=== PATIENT | male | born 1955 | race African-American/Black ===

== ENCOUNTER 2019-11-12 11:00 | Outpatient (CLI) | payer OTHER, SELFPAY ==
--- NOTE | ~2019-11-12 | US_ITS ---
EXAMINATION: US retroperitoneal comp EXAM DATE: 11/12/2019 11:49 INDICATION: Left renal mass. TECHNIQUE: Multiple grayscale and Doppler images of the kidneys were obtained (by a technologist who performed the scan) and subsequently reviewed. There is no prior study for comparison. FINDINGS: Right kidney: There is normal contour and echogenicity. It measures 11.7 x 4.4 x 4.7 centimeters. T here are no focal renal lesions identified. There is no hydronephrosis. Left kidney: There is normal contour and echogenicity. It measures 11.4 x 6.5 x 5.4 centimeters. Th ere are no focal renal lesions identified. There is no hydronephrosis. There are 2 hyperechoic foci without shadowing noted in the posterior dependent aspect of the bladder along the wall. These measure 8 and 7 mm in size. Bladder stones would typically demonstrate shadowi ng. These could be low density bladder stones, or could be focal regions of bladder wall thickening. IMPRESSION: 1. Sonographically unremarkable kidneys. Please note that patient's outside study reporting a mass w as not available for correlation. 2. Two subcentimeter bladder wall foci posteriorly, could be poorly calcified bladder stones, polyps or masses. Consider CT urogram. Reviewed, dictated and finalized at location A. IMPRESSION: 1. Sonographically unremarkable kidneys. Please note that patient's outside st udy reporting a mass was not available for correlation. 2. Two subcentimeter bladder wall foci posteriorly, could be poorly calcified bladder stones, polyps or masses. Consider CT urogram.
== END 2019-11-12 11:01 | disposition home or self-care (01) ==
PROVIDERS: Visit Provider Urology
DX: N28.89 Other specified disorders of kidney and ureter (principal)
CPT/HCPCS: 76770

== ENCOUNTER 2021-04-20 08:16 | Outpatient (CLI) | payer MEDICARE, OTHER, SELFPAY ==
--- NOTE | ~2021-04-20 | MR_ITS ---
EXAMINATION: MR abdomen wo/w con DATE: 04/20/2021 09:54 INDICATION: Malignant neoplasm of the left kidney TECHNIQUE: Magnetic resonance imaging (MRI) of the abdomen was performed without and with 17 mL Multi pipe intravenous contrast. Sequences included coronal T2-weighted SS-FSE, coronal and axial FS 2D-F IESTA, axial STIR FSE, axial T2-weighted SS-FSE, axial T2-weighted FS SS-FSE, axial diffusion-weighte d SE, axial dual-echo T1-weighted FSPGR, and axial and coronal T1-weighted LAVA. Postcontrast axial T 1-weighted LAVA images were obtained in a time course. Postcontrast coronal T1-weighted LAVA images w ere obtained. COMPARISON: Ultrasound dated 11/12/2019 FINDINGS: Heart size is normal. No pericardial or pleural effusion. Multiple T2 hyperintense cavernous hemangio mas demonstrating characteristic peripheral discontiguous puddling of contrast which fills in on svetlana yed imaging. The largest two measures 10.8 x 6.0 cm in segment IVb of the liver and the next largest measuring 8.8 x 7.7 cm in segment 3 of the liver. Gallbladder, spleen, pancreas and bilateral adrenal glands are normal. Region peripheral scarring with a few adjacent foci of susceptibility artifact at the anterior lower pole of the left kidney likely sequela of prior partial nephrectomy. No enhancing renal masses identified. Several bilateral T2 hyperintense nonenhancing renal cysts. 9 mm T1 isointe nse, T2 hypointense likely proteinaceous/hemorrhagic cystic lesion at the lower pole of the right kid sandip. This appears predominantly nonenhancing however there is a subtle 2-3 mm nodule focus of mural-b ased nodule consistent with a Bosniak 3 lesion. 8 mm enhancing nodule at the lateral upper pole of th e right kidney consistent with renal cell carcinoma. Bowels are normal with no obstruction. Normal ap pendix. Visualized portion of the bladder is unremarkable. No pathologically enlarged abdominal lymph adenopathy. Normal bone marrow signal throughout. IMPRESSION: 1. 8 mm enhancing nodule at the lateral upper pole of the right kidney which would be a surgical lesi on consistent with renal cell carcinoma until proven otherwise 2. 9 mm Bosniak 3 complex cystic mass at the lower pole of the right kidney which is equivocal for be nign versus malignant etiology. 3. Region of parenchymal scarring at the lower pole of the left kidney with adjacent foci of suscepti bility artifact suggesting sequela of prior partial nephrectomy. Correlate with clinical/surgical his tory. 4. Multiple large cavernous hemangiomas scattered throughout the liver. Reviewed, dictated and finalized at location A. IMPRESSION: 1. 8 mm enhancing nodule at the lateral upper pole of the right kidney which wo uld be a surgical lesion consistent with renal cell carcinoma until proven othe rwise 2. 9 mm Bosniak 3 complex cystic mass at the lower pole of the right kidney whi ch is equivocal for benign versus malignant etiology. 3. Region of parenchymal scarring at the lower pole of the left kidney with adj acent foci of susceptibility artifact suggesting sequela of prior partial nephr ectomy. Correlate with clinical/surgical history. 4. Multiple large cavernous hemangiomas scattered throughout the liver.
[2021-04-20 09:23] LABS: Estimated Glomerular Filt Rate > 60
== END 2021-04-20 08:17 | disposition home or self-care (01) ==
PROVIDERS: PCP Family Medicine; Visit Provider Urology
DX: C64.9 Malignant neoplasm of unspecified kidney, except renal pelvis (principal); D18.00 Hemangioma unspecified site; N28.1 Cyst of kidney, acquired
CPT/HCPCS: 74183; A9577